=== PATIENT | female | born 1980 | race Caucasian/White ===

== ENCOUNTER 2016-11-23 07:00 | Inpatient (IN) | payer MEDICARE, OTHER ==
--- NOTE | ~2016-11-23 | HP ---
Unit #: [id number] #: [id number] Patient: JAY WALDEN [id number] [place] [address] [id number] MR#: [id number] NAME: JAY WALDEN ROOM: P131 Age: 36 Sex: F Admission Date: 11/23/2016 : 1980 Attending Physician: Vicki Briones M.D. Admitting Physician: Vicki Briones M.D. Primary Care Physician: Primary Care Physician No HISTORY AND PHYSICAL HISTORY OF PRESENT ILLNESS Jay is a 36-year-old female admitted 11/23/[address] [place] [address] for psychosis. PAST MEDICAL HISTORY Hypothyroidism. PAST SURGICAL HISTORY Hysterectomy. SOCIAL HISTORY Smokes one pack of cigarettes daily. Denies alcohol use and does report occasional methamphetamine use. She is currently and living with her . FAMILY HISTORY Noncontributory. REVIEW OF SYSTEMS CONSTITUTIONAL: No fever or chills. HEENT: Denies any sore throat, ear pain or runny nose. CARDIOVASCULAR: Denies chest pain, irregular heart rhythm or palpitations. CHEST: Denies shortness of breath or cough. No hemoptysis. GASTROINTESTINAL: Denies nausea, vomiting, diarrhea or chronic constipation. ENDOCRINE: Denies history of increased thirst or urination. No recent significant weight loss or gain. GENITOURINARY: Denies dysuria, frequency, or hematuria. SKIN: Denies any rashes. HEMATOLOGIC: Denies history of increased bleeding or bruising. MUSCULOSKELETAL: Denies any hot, swollen joints. No generalized muscle pain. NEUROLOGIC: Denies problems with vision or speech. No frequent, severe headaches. No numbness, tingling or weakness in any extremities. Denies loss of bladder or bowel control. CURRENT MEDICATIONS [place] and Zyprexa, BuSpar, Synthroid, Prozac, Klonopin. ALLERGIES Sulfa drugs. Unit #: [id number] #: [id number] Patient: JAY WALDEN PHYSICAL EXAMINATION GENERAL: Alert, oriented, in no acute distress. VITAL SIGNS: Blood pressure 125/78, heart rate 100, respirations 24, temperature 98.5. HEIGHT: 5 foot 9 inches. WEIGHT: 193 pounds. SKIN: Warm and dry without rash or lesion. HEENT: Normocephalic. TMs not viewed. Oral and nasal passages clear. Conjunctivae clear. PERRLA. EOMs intact. NECK: Supple without lymphadenopathy or thyromegaly. HEART: Regular rate and rhythm without murmur. LUNGS: Clear. ABDOMEN: Soft, nontender, without masses or hepatosplenomegaly. : Not done. EXTREMITIES: No evidence of cyanosis, clubbing or edema. Moves all without focal deficit. NEUROLOGICAL: Grossly within normal limits. Cranial Nerves: II: Visual lloyd are intact. III, IV AND : Extraocular movements are intact. Pupils are equal, round and reactive to light. V: Facial sensation is grossly normal. VII: Facial movements and expression are normal. VIII: Auditory acuity grossly intact. IX, X: Uvula is midline. Phonation is normal. XI: Patient shrugs shoulders and turns head normally. XII: Tongue protrudes in the midline. Sensory and Motor Function: Sensory and motor sensation is grossly normal. Motor: moves all extremities well. Coordination: Gait is normal. Deep Tendon Reflexes: Intact. IMPRESSION 1. Psychiatric admission. 2. Hypothyroidism. RECOMMENDATIONS Psychiatric, per psychiatrist. MEDICAL: I see no contraindications to participating in facility's activities. MEDICAL PROGNOSIS Good. MEDICAL CONDITION Stable. Dictated by... Rudy Adler/[place] TD: 11/24/2016 02:04 JOB #: [id number] Unit #: [id number] #: [id number] Patient: JAY WALDEN HISTORY AND PHYSICAL Page 1 of 1 X LEO ALEJANDRO APRN X HISTORY AND PHYSICAL
--- NOTE | ~2016-11-23 | PA ---
Unit #: [id number] #: [id number] Patient: JAY WALDEN [id number] [place] [address] [id number] I MR#: [id number] NAME: JAY WALDEN ROOM: P131 Age: 36 Sex: F Admission Date: 11/23/2016 : 1980 Date of Assessment: 11/25/2016 Attending Physician: Vicki Briones M.D. Admitting Physician: Vicki Briones M.D. Primary Care Physician: Primary Care Physician No PSYCHIATRIC ASSESSMENT INFORMANTS The patient reliability, fair informant and chart reliability, good. CHIEF COMPLAINT Manic and dizziness. HISTORY OF PRESENT ILLNESS Ms. Wright is a 36-year-old female, presented with the above-mentioned complaint. The patient has a history of previous treatment in 2012. The patient reported symptoms of lithium overdose. The patient reports that she is throwing up, passing out, diarrhea, dizziness, lightheadedness, and cold flashes. The patient reported "I'm going crazy." The patient reports that she lives in the household with her and 's 3-year-old grandson. The patient's dad in 2014. The patient reported having above-mentioned symptoms. The patient guarded, paranoid, mood lability. Reported command hallucination and suicidal ideation. Denied any plan. Needing inpatient admission at this time for psychiatric stabilization. PAST PSYCHIATRIC HISTORY Remarkable for history of previous treatment in 2012. The patient was treated at [facility], and [facility] in the past. FAMILY HISTORY AND SOCIAL HISTORY The patient has a good support system. No history of abuse. No legal charges. Family history is remarkable for history of substance abuse in the family member, details unknown at this time. MEDICAL HISTORY Remarkable for thyroid problem, foot pain, anxiety, depression, and history of seizure. Musculoskeletal; muscle strength and tone, no atrophy or abnormal movement. Gait normal. MEDICATION HISTORY The patient is on lithium, BuSpar, Synthroid, Prozac, and Klonopin. ALLERGIES No known drug allergies. SUBSTANCE ABUSE HISTORY The patient reported alcohol use, age of onset 14; alcohol, age of onset 17; marijuana, 13; crack cocaine, 35; and amphetamine, age of onset 31. Unit #: [id number] #: [id number] Patient: JAY WALDEN REVIEW OF SYSTEMS HEENT: Eyes, clear. Ears, nose, mouth, and throat; clear. CARDIOVASCULAR: Unremarkable. RESPIRATORY: Unremarkable. GI: Unremarkable. : Unremarkable. SKIN: Unremarkable. LYMPH NODE: Unremarkable. NEUROLOGIC: Unremarkable. ENDOCRINE: Unremarkable. HEMATOLOGIC: Unremarkable. ALLERGIC/IMMUNOLOGIC: Unremarkable. MUSCULOSKELETAL: Muscle strength and tone, no atrophy or abnormal movement. Gait normal. MENTAL STATUS EXAMINATION CONSTITUTIONAL: Measurement of vital signs; temperature 98.5, heart rate 100, respiratory rate 24, blood pressure 125/78. Height 5 feet 9 inches and weight 193 pounds. GENERAL APPEARANCE: The patient dressed casually. The patient did not show any facial deformity. MUSCULOSKELETAL: Please see above. PSYCHIATRIC EXAMINATION Description of speech; regular rate, normal volume, normal articulation, and coherent. Description of thought process, goal directed. Description of association, intact. Description of abnormal psychotic thinking; the patient reported command hallucination. Denied any thoughts of harming self or others, but passive SI. Denied any homicidal ideation. Description of the patient's judgment: Concerning everyday activity, poor. Social situation, poor. Concerning psychiatric condition, poor. Complete mental status examination; oriented in time, place, and person. Recent and remote memory, fair. Attention span and concentration, fair. Language, able to name object and repeat phrases. Fund of knowledge, aware of current event and passive vocabulary intact. Mood and affect, sad and dysphoric. Insight and judgment, fair to poor. ASSETS AND LIABILITIES Assets, the patient is articulate and able to take care of her ADL. Liability, history of depression and bipolar disorder. ADMITTING DIAGNOSES Psychiatric: Bipolar mood disorder, not otherwise specified, recurrent, severe, depressed, F31.9 and anxiety disorder, not otherwise specified, F40.01. Secondary diagnosis: Deferred. Medical diagnosis: Remarkable for hypothyroidism. Stressors: Psychosocial stressors. PSYCHIATRIC PLAN AND TREATMENT GOAL AND DISCHARGE PLAN 1. Advised to admit the patient on the inpatient unit. Provide safe, supportive, and structured environment. 2. Ordered labs; CBC, CMP, UA, UDS, and lithium level. Unit #: [id number] #: [id number] Patient: JAY WALDEN 3. Precaution for psychosis, aggression, and self-harm. 4. Advised to continue with home medication. If needed, consider further adjustment of medication. Treatment goal to attain euthymic mood, gain insight into her problem, and learn coping skills. DISCHARGE PLAN Plan to stabilize the patient and consider followup in outpatient program. ESTIMATED LENGTH OF STAY 2 weeks. Dictated by... Humble Berumen M.D. PHILIPPE/fam TD: 11/25/2016 16:50 JOB #: [id number] PSYCHIATRIC ASSESSMENT Page 1 of 1 X Humble Berumen MD X PSYCHIATRIC ASSESSMENT
--- NOTE | ~2016-11-23 | DS ---
Unit #: [id number] #: [id number] Patient: JAY WALDEN [id number] [facility] [address] [place] [address] [id number] I MR#: [id number] NAME: JAY WALDEN ROOM: 31 Age: 36 Sex: F Admission Date: 11/23/2016 : 1980 Discharge Date: 11/25/2016 Attending Physician: iVcki Briones M.D. Primary Care Physician: Primary Care Physician No DISCHARGE SUMMARY REASON FOR ADMISSION Psychosis and hallucination. DIAGNOSTIC STUDIES LABORATORY RESULTS: Unremarkable. HOSPITAL COURSE The patient was admitted to the inpatient unit on 11/23/2016 and discharged on 11/25/2016. The patient was treated with expressive therapy, medication management, and psychotherapy. The patient was still having problem with the anxiety, but denied any suicidal or homicidal ideation. The patient was subsequently given AMA discharge as the patient was unholdable at this time, but still requiring treatment. DISCHARGE MEDICATIONS [place] carbonate 900 mg b.i.d., last lithium level 0.7; Zyprexa 10 mg at bedtime for psychosis; BuSpar 30 mg b.i.d. for anxiety, Synthroid 0.075 mg daily before breakfast for hypothyroidism, Prozac 40 mg daily for mood symptoms, Klonopin 1 mg b.i.d. for anxiety, Topamax 100 mg daily for mood symptom, Inderal 20 mg b.i.d. for anxiety, and Imitrex p.r.n. for headache. DISCHARGE DIAGNOSES Psychiatric: Bipolar mood disorder, recurrent, severe, depressed, F31.9 and amphetamine use disorder, moderate to severe, F15.20. Secondary diagnosis: Deferred. Medical diagnosis: History of hypothyroidism. Stressors: Psychosocial stressors. DISCHARGE INSTRUCTIONS The patient to follow up in outpatient clinic as per social service technician. CONDITION ON DISCHARGE Pleasant, compliant, and cooperative. PROGNOSIS Guarded. DIET AND ACTIVITY As tolerated. Unit #: [id number] #: [id number] Patient: JAY WALDEN Dictated by... Shy Keating/fam TD: 11/25/2016 20:44 JOB #: [id number] DISCHARGE SUMMARY Page 1 of 1 X Humble Berumen MD X DISCHARGE SUMMARY
--- NOTE | ~2016-11-23 | PN ---
Unit #: [id number] #: [id number] Patient: JAY WALDEN [id number] [facility] [address] [place] [address] [id number] I MR#: [id number] NAME: JAY WALDEN ROOM: 31 Age: 36 Sex: F Admission Date: 11/23/2016 : 1980 Attending Physician: Vicki Briones M.D. Admitting Physician: Vicki Briones M.D. Primary Care Physician: Primary Care Physician Karrie HEARD NOTES DATE OF SERVICE 11/24/2016 DISCUSSION Ms. Wright is a 36-year-old female seen on 11/24/2016. The patient interviewed, chart reviewed. Obtained information from nursing staff. The patient was compliant, cooperative. Mood sad, dysphoric, flat affect, guarded, but denied any thoughts of harming self or others. The patient's lithium level came back 0.7. test negative. Thyroid normal range. CMP unremarkable. Complete Review of Systems: Unremarkable. MENTAL STATUS EXAMINATION General Appearance: The patient dressed casually. Attention span, concentration: Fair. Oriented in place and person. Mood and affect labile. Speech: Monotone. Thought process: [place]. The patient denied any thoughts of harming self or others or any psychotic symptom. Recent and remote memory: Poor. Insight and judgment: Poor. DIAGNOSIS Bipolar mood disorder not otherwise specified, F31.9 ASSESSMENT/PLAN Advised to continue with current medication and therapeutic protocol. If needed, consider further adjustment of medication. Dictated by... Shy Keating/shivani TD: 11/26/2016 09:23 JOB #: [id number] Unit #: [id number] #: [id number] Patient: JAY WALDEN [place] PROGRESS NOTES Page 1 of 1 X Humble Berumen MD PROGRESS NOTE
--- NOTE | ~2016-11-23 | CO ---
Unit #: [id number] #: [id number] Patient: JAY WALDEN [id number] [facility] [address] [place] [address] [id number] I MR#: [id number] NAME: JAY WALDEN ROOM: 31 Age: 36 Sex: F Admission Date: 11/23/2016 : 1980 Attending Physician: Vicki Briones M.D. Primary Care Physician: Primary Care Physician No Consultation Date: 11/23/2016 CONSULTATION REPORT Medical consult was requested by Dr. Briones and completed on 11/23/2016. HISTORY OF PRESENT ILLNESS Jay is a 36-year-old female, who has complaints of burning with urination and abdominal pain. She also reports increased urinary frequency, but says that for the past several hours she has been unable to urinate since the UA was requested. She currently reports that she is unable to leave UA. She also denies fever and has not noticed any blood in her urine and has no other complaints. PHYSICAL EXAMINATION CARDIAC: Regular rate and rhythm. No murmurs, gallops, or rubs. RESPIRATORY: Clear to auscultation bilaterally. ABDOMEN: Bowel sounds positive in all quadrants. No abdominal tenderness with palpation. No CVA tenderness or flank pain. ASSESSMENT AND PLAN Dysuria. Once UA is obtained, we will begin Cipro 500 mg p.o. b.i.d. for 3 days. The patient was instructed to leave UA prior to Cipro being started, she is agreeable. Dictated by... Rudy Adler/fam TD: 11/25/2016 18:14 JOB #: [id number] CONSULTATION REPORT Page 1 of 1 X LEO ALEJANDRO APRN CONSULTATION REPORT
[2016-11-23 14:19] LABS: BASOPHIL# 0.1 X10e3 (0-0.3); BASOPHIL% 0.7 % (0-2.5); EOSINOPHIL# 0.1 X10e3 (0-0.7); EOSINOPHIL% 0.6 % (0.0-7.0); HEMATOCRIT 36.6 % (35.0-45.0); HEMOGLOBIN 11.7 gm/dL (12.0-16.0); LYMPHOCYTE# 2.3 X10e3 (1.0-3.5); LYMPHOCYTE% 17.8 % (17.0-45.0); MEAN CORPUSCULAR HEMOGLOBIN 27.8 PG (28-34); MEAN PLATELET VOLUME 9.6 FL (6.5-11.5); MONOCYTE# 0.7 X10e3 (0-1.0); MONOCYTE% 5.5 % (3.0-12.0); NEUTROPHIL# 9.6 X10e3 (1.5-7.1); NEUTROPHIL% 75.4 % (40-75); PLATELET COUNT 388 X10e3 (140-420); RED CELL DISTRIBUTION WIDTH 14.5 % (11.0-15.5); WHITE BLOOD COUNT 12.7 X10e3 (4.0-10.5)
[2016-11-23 14:21] LABS: DIFF IND NO
[2016-11-23 14:54] LABS: THYROID STIMULATING HORMONE 1.41 uIU/ml (0.34-5.60)
[2016-11-23 15:01] LABS: FREE THYROXIN (T4) 0.98 ng/dL (0.58-1.64)
[2016-11-23 15:05] LABS: ALBUMIN SERUM 4.2 g/dL (3.5-5.0); BILIRUBIN,TOTAL 1.4 mg/dL (0.2-2.0); CALCIUM SERUM 9.7 mg/dL (8.4-10.2); GLOM FILT RATE Estimated 71.9 mL/min (>60); POTASSIUM 3.6 mmol/L (3.5-5.1); PROTEIN TOTAL SERUM 7.5 g/dL (6.0-8.3)
[2016-11-24 10:39] LABS: URINE APPEARANCE CLEAR; URINE BILIRUBIN NEG (NEG); URINE BLOOD NEG (NEG); URINE COLOR YELLOW; URINE GLUCOSE NEG (NEG); URINE KETONE NEG (NEG); URINE LEUKOCYTE ESTERASE NEG (NEG); URINE NITRATE NEG (NEG); URINE PH 6.5 (5-8); URINE PROTEIN NEG (NEG); URINE SPECIFIC GRAVITY 1.005 (1.003-1.035); URINE UROBILINOGEN 0.2 MG/DL (NEG)
[2016-11-24 10:57] LABS: CULTURE INDICATED? NO
[2016-11-24 10:59] LABS: AMPHETAMINE POS (NEG); BARBITURATES NEG (NEG); BENZODIAZEPINES NEG (NEG); COCAINE NEG (NEG); MARIJUANA NEG (NEG); OPIATES NEG (NEG); TRICYCLIC ANTIDEPRESSANTS NEG (NEG); U METHADONE NEG (NEG)
== END 2016-11-25 15:28 | disposition home or self-care (01) | DRG 885 ==
LOC: P1S 10:04
PROVIDERS: Psychiatry & Neurology Psychiatry
DX: F31.9 Bipolar disorder, unspecified (principal); F15.20 Other stimulant dependence, uncomplicated; R30.0 Dysuria; F41.9 Anxiety disorder, unspecified; E03.9 Hypothyroidism, unspecified; Z90.710 Acquired absence of both cervix and uterus; F17.210 Nicotine dependence, cigarettes, uncomplicated
CPT/HCPCS: 80053; 80178; 80307; 81003; 84439; 84443; 84703; 85025